=== PATIENT | female | born 1985 | race Caucasian/White ===

== ENCOUNTER 2016-03-30 02:41 | Emergency (ER) ==
[2016-03-30] MEDS ORDERED: ASPIRIN ONE (03:10)
[2016-03-30] MEDS ORDERED: ASPIRIN PO STA (03:16)
--- NOTE | 2016-03-30 03:25 | EKG Report ---
Test Performed on : 03/30/2016 03:17:45 AM Test Reason : CHEST PAIN Blood Pressure : / mmHG Vent. Rate : 094 BPM Atrial Rate : 094 BPM P-R Int : 146 ms QRS Dur : 082 ms QT Int : 348 ms P-R-T Axes : 048 007 018 degrees QTc Int : 435 ms Normal sinus rhythm. Minimal voltage criteria for LVH, may be normal variant Borderline ECG When compared with ECG of 21-OCT-2015 17:06, No significant change was found Unconfirmed Result
[2016-03-30 03:29] LABS: MANUAL DIFF NEEDED? NO
--- NOTE | 2016-03-30 03:30 | ED EKG INTERP ---
EKG Interpretation - EKG Time of EKG reading by physician:: 03:17 EKG Read and Signed by:: Rafael Pascual EKG Interpretation (*Must complete 3 of following elements*): Abnormal Rate: 94 Rhythm: NSR QRS: LVH (minimal voltage criteria) Comments: borderline ECG Attestation - Scribe Verification/Attestation Scribe:: Sean Pinzon Acting as Scribe for:: Rafael Pascual Scribe documention review:: This chart was documented by a scribe and accurately reflects the service the provider performed and the decisions made by the provider.
[2016-03-30 03:45] LABS: INR 0.91 (0.86-1.15); PROTIME 12.6 Seconds (12.1-15.5)
[2016-03-30 03:46] LABS: PTT PL 28.6 Seconds (22.6-43.9)
[2016-03-30 03:48] LABS: BASO% 0.2 % (0.0-0.8); EOS# 0.19 X1000 (0.0-0.7); EOS% 1.5 % (0.0-10.0); HEMATOCRIT 40.2 % (37.0-47.0); HEMOGLOBIN 13.4 g/dL (12.0-16.0); IMM GRAN# 0.06 X1000 (0.0-0.04); IMM GRAN% 0.5 % (0.0-0.5); LYMPH# 4.33 X1000 (1.2-3.4); LYMPH% 33.6 % (20.5-51.1); MCH 30.2 PG (27-31); MCHC 33.3 g/dL (33-37); MCV 90.5 FL (81-99); MONO# 0.69 X1000 (0.11-0.59); MONO% 5.4 % (1.7-9.3); MPV 9.3 FL (7.4-10.4); NEUT% 58.8 % (42.2-75.2); PLT 314 X1000 (130-400); RBC 4.44 XMIL (4.2-5.4)
--- NOTE | 2016-03-30 03:48 | PROVIDER DOCUMENTATION ---
HPI-General Adult - General Chief Complaint: Chest Pain Stated Complaint: CHEST PAIN Time Seen by Provider: 03/30/16 03:40 Source: patient Allergies/Adverse Reactions: Patient Allergies Allergy/AdvReac Type Severity Reaction Status Date / Time No Known Allergies Allergy Verified 03/30/16 02:52 Home Medications: Omeprazole 20 mg PO DAILY 02/18/15 Hydrocodone/Acetaminophen [Athol 10-325 Tablet] 1 tab PO Q8HR 10/21/15 Lisinopril/Hydrochlorothiazide [Lisinopril-Hctz 20-25 mg Tab] PO DAILY - History of Present Illness -Gen Adult Nature of Presenting Problems: 30 yo WF comes to the ED with chest pain and sob. Pt states she woke up suddenly with the pain. She states the stress has been hard and she feels a lot of anxiety and thinks it was a panic attack. Pain is gone now and she says she is breathing fine. Location of Pain/Injury: reports: chest Pain Radiation: reports: no radiation Quality of Pain: reports: aching Severity: reports: mild Onset/Duration: reports: abrupt, 1-3 hours ago Timing: reports: gone now Context/Activities at Onset: reports: none Associated Symptoms: reports: anxiety, shortness of breath. denies: cough, diaphoresis, dizziness, fever/chills, nausea, syncope, vomiting, trouble walking Similar Symptoms Previously?: No Recently seen or treated by another doctor?: No Review of Systems - Adult - REVIEW OF SYSTEMS - ADULT Constitutional: denies: chills, fever Eyes: reports: no symptoms reported Ears, Nose, Mouth & Throat: reports: no symptoms reported Cardiovascular: reports: chest pain, edema Respiratory: reports: shortness of breath. denies: cough, wheezing Gastrointestinal: denies: nausea, vomiting Genitourinary: reports: no symptoms reported Musculoskeletal: reports: no symptoms reported Integumentary: reports: no symptoms reported Neurological: reports: no symptoms reported Psychiatric: reports: anxiety. denies: depression, suicidal thoughts Endocrine: reports: no symptoms reported Hematologic/Lymphatic: reports: no symptoms reported Allergic/Immunologic: reports: no symptoms reported All Other Systems: Reviewed and Negative Past History - Adult - PAST MEDICAL HISTORY-ADULT Review of Records: reports: Old Records Reviewed, Nursing Assessment Review, Medications Reviewed Major Childhood Illnesses: reports: denies history Cardiovascular: reports: HTN Gastrointestinal: reports: GERD Musculoskeletal: reports: chronic pain (back), neck/back injury - PRIOR SURGERIES/PROCEDURES Surgical/Procedure History: reports: none - IMMUNIZATION STATUS Childhood Immunizations: See Nurse Assessment Flu Vaccine: See Nurse Assessment - SOCIAL HISTORY Smoking: cigarettes, greater than 1 pack/day Substance Use: none/never Living Situation: family Occupation: works at an [employer] office Physical Exam-General - PHYSICAL EXAM-ADULT Initial Vital Signs Reviewed: Yes - CONSTITUTIONAL General Appearance: appears well, alert, no apparent distress - EYES Eyes: PERRL/EOMI, pink conjunctivae - HEAD, EARS, NOSE, MOUTH & THROAT HENMT: moist mucous membranes, normal ENT inspection, TMs normal, pharynx normal - NECK Neck: non-tender, full range of motion, supple, normal inspection - RESPIRATORY Respiratory: lungs clear, normal breath sounds, no pleuratic chest pain, no respiratory distress, no accessory muscle use - CARDIOVASCULAR Cardiovascular: normal peripheral pulses, tachycardia - GASTROINTESTINAL (ABDOMEN) Abdominal Exam: normal bowel sounds, non tender, soft - MUSCULOSKELETAL Back Exam: normal inspection, no CVA tenderness, no vertebral tenderness Extremity: normal range of motion, non-tender, normal gait, pedal edema (2+) - SKIN Integumentary: normal color, normal turgor, warm/dry - NEUROLOGIC Neurologic: grossly normal, no motor/sensory deficits - PSYCHIATRIC Psych/Mental Status: normal thought content, normal thought process, oriented x 3, anxious Progress - PLAN OF CARE/RESULTS Progress/Plan/Lab Results: Orders Category Date Time Status Cardiac Monitoring DIRECTED Care 03/30/16 03:16 Active Oxygen Therapy- ED Nursing DIRECTED Care 03/30/16 03:16 Active Saline Loc NOW Care 03/30/16 03:16 Active CHEST-2 VIEWS [RAD] Stat Exams 03/30/16 03:16 Completed CBC WITH ELECTRONIC DIFF [HEME] Stat Lab 03/30/16 03:14 Completed CK PROFILE [SP CHEM] Stat Lab 03/30/16 03:14 Completed COMPREHENSIVE METABOLIC PANEL [CHEM] Stat Lab 03/30/16 03:[address] D-D[address]ER PL [COAG] Stat Lab 03/30/16 03:14 Completed MAGNESIUM [CHEM] Stat Lab 03/30/16 03:14 Completed PRO B-NATRIURETIC PEPTIDE Stat Lab 03/30/16 03:14 Completed [address]IME WITH INR PL [COAG] Stat Lab 03/30/16 03:[address] [COAG] Stat Lab 03/30/16 03:14 Completed TROPONIN T Stat Lab 03/30/16 03:14 Completed Aspirin Med 03/30/16 03:10 Discontinued 325 mg .ROUTE .STK-MED ONE Aspirin Med 03/30/16 03:16 Discontinued 325 mg PO STAT STA EKG [EKG] Stat Ther 03/30/16 03:16 Draft Vital Signs Temp Pulse Resp BP Pulse Ox 03/30/16 05:33 97.6 F 90 20 156/97 98 03/30/16 05:00 80 13 162/105 98 03/30/16 04:45 81 13 127/99 97 03/30/16 04:30 76 17 138/100 96 03/30/16 04:15 78 15 143/85 98 03/30/16 04:00 80 15 129/91 99 03/30/16 03:15 93 H 14 174/108 99 03/30/16 03:13 102 H 26 H 174/106 99 03/30/16 02:45 98.3 F 102 H 20 192/117 100 No Known Allergies Allergy (Verified 03/30/16 02:52) Omeprazole 20 mg PO DAILY 02/18/15 Hydrocodone/Acetaminophen [Athol 10-325 Tablet] 1 tab PO Q8HR 10/21/15 Azithromycin [Zithromax Z-Man] 250 mg PO DIRECTED #1 pkg 03/30/16 Lisinopril/Hydrochlorothiazide [Lisinopril-Hctz 20-25 mg Tab] PO DAILY NICOTINE DEPENDENCE, CIGARETTES, UNCOMPLICATED (03/30/16) OTHER CHRONIC PAIN (03/30/16) ESSENTIAL (PRIMARY) HYPERTENSION (03/30/16) GASTRO-ESOPHAGEAL REFLUX DISEASE WITHOUT ESOPHAGITIS (03/30/16) DORSALGIA, UNSPECIFIED (03/30/16) TACHYCARDIA, UNSPECIFIED (03/30/16) SHORTNESS OF BREATH (03/30/16) CHEST PAIN, UNSPECIFIED (03/30/16) LOCALIZED EDEMA (03/30/16) ABNORMAL ELECTROCARDIOGRAM [ECG] [EKG] (03/30/16) TOBACCO ABUSE COUNSELING (03/30/16) OTHER [facility] (CURRENT) DRUG THERAPY (03/30/16) Departure - Departure Time of Disposition Order: 05:00 DIAGNOSIS: Atypical Chest Pain Disposition: HOME 01 Certified Medical Emergency: Emergent Condition: Stable Prescriptions: Azithromycin [Zithromax Z-Man] 250 mg PO DIRECTED #1 pkg Referrals: Geo Olson MD [Primary Care Provider] - Forms: Return to School/Parent Work Instructions: Nonspecific Chest Pain, Azithromycin tablets Attestation - Scribe Verification/Attestation Scribe:: Sean Pinzon Acting as Scribe for:: Rafael Pascual Scribe documention review:: This chart was documented by a scribe and accurately reflects the service the provider performed and the decisions made by the provider.
[2016-03-30 04:10] LABS: AGAP 11; ALBUMIN 4.3 g/dL (3.5-5.0); ALKALINE PHOSPHATASE 71 U/L (32-104); BUN 10 mg/dL (8-22); CALCIUM 9.3 mg/dL (8.8-10.2); CHLORIDE 101 mmol/L (98-107); CK PROFILE 59 U/L (24-173); COSMO 275; GOT 20 U/L (10-30); GPT 27 U/L (10-36); MAGNESIUM 2.2 mg/dL (1.5-2.7); POTASSIUM 3.7 mmol/L (3.5-5.1); SODIUM 138 mmol/L (136-145); TCO2 26 mmol/L (25-35); TOTAL BILIRUBIN < 0.15 mg/dL (0.20-1.00); TOTAL PROTEIN 7.4 g/dL (6.3-8.3)
[2016-03-30 05:34] VITALS: BP 156/97
--- NOTE | 2016-03-30 09:12 | Diag Imaging Result Document ---
PROCEDURE NAME: CHEST-2 VIEWS - 03/30/2016 CHEST X-RAY, 2 VIEWS: COMPARISON: None. FINDINGS: Lung volumes are critically low with central atelectasis. IMPRESSION: Nondiagnostic exam.
== END 2016-03-30 05:33 | disposition home or self-care (01) ==
LOC: P.ED 02:41
DX: R07.9 Chest pain, unspecified (principal); R06.02 Shortness of breath; R60.0 Localized edema; R00.0 Tachycardia, unspecified; R94.31 Abnormal electrocardiogram [ECG] [EKG]; I10 Essential (primary) hypertension; K21.9 Gastro-esophageal reflux disease without esophagitis; G89.29 Other chronic pain; M54.9 Dorsalgia, unspecified; F17.210 Nicotine dependence, cigarettes, uncomplicated; Z79.899 Other long term (current) drug therapy; Z71.6 Tobacco abuse counseling
CPT/HCPCS: 71020; 80053; 82550; 83735; 83880; 84484; 85025; 85379; 85610; 85730; 93005; 99284